=== PATIENT | male | born 1980 | race Caucasian/White ===

== ENCOUNTER 2017-11-05 22:35 | Emergency (ER) | payer OTHER ==
[~2017-11-05] VITALS: Ht 185.4 cm; Wt 99.0 kg
[2017-11-05 22:37] VITALS: BP 142/76; PULSE 119; RESP 20; TEMP 98.7; O2SAT 93
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
== END 2017-11-06 00:50 | disposition home or self-care (01) ==
LOC: NEPD 22:35
DX: S80.01XA Contusion of right knee, initial encounter (principal); W22.8XXA Striking against or struck by other objects, initial encounter; Y93.I1 Activity, roller coaster riding; F84.0 Autistic disorder; I10 Essential (primary) hypertension
CPT/HCPCS: 99282